=== PATIENT | female | born 1975 | race Caucasian/White ===

== ENCOUNTER 2024-05-06 10:16 | Outpatient (CLI) | payer OTHER, SELFPAY | END 2024-05-06 10:17 | disposition home or self-care (01) | LOC: LKVREF 10:17 | PROVIDERS: PCP Emergency Medicine; Visit Provider Emergency Medicine | DX: F32.A Depression, unspecified (principal); F41.9 Anxiety disorder, unspecified; I10 Essential (primary) hypertension | CPT/HCPCS: 84443 ==

== ENCOUNTER 2024-06-30 14:34 | Outpatient (CLI) | payer OTHER, SELFPAY | END 2024-06-30 14:35 | disposition home or self-care (01) | LOC: LKVREF 14:35 | PROVIDERS: PCP Emergency Medicine; Visit Provider Emergency Medicine | DX: I10 Essential (primary) hypertension (principal) | CPT/HCPCS: 80048 ==